=== PATIENT | female | born 1995 ===

== ENCOUNTER 2022-07-18 07:30 | Emergency (ER) | payer SELFPAY ==
[~2022-07-18] VITALS: Ht 151 cm; Wt 48.0 kg
[2022-07-18] MEDS ORDERED: KETOROLAC 30 MG/ML VIAL IVP STA (07:48)
[2022-07-18 08:02] LABS: BILIRUBIN,URINE NEGATIVE (NEGATIVE); CLARITY,URINE CLEAR; COLOR,URINE YELLOW; GLUCOSE, URINE (UA) NEGATIVE (NEGATIVE); KETONES,URINE NEGATIVE (NEGATIVE); LEUKOCYTE ESTERASE ,URINE NEGATIVE (NEGATIVE); NITRITE,URINE NEGATIVE (NEGATIVE); PH,URINE 5.5 (5-9); PROTEIN,URINE NEGATIVE (NEGATIVE)
[2022-07-18 08:10] LABS: BASOPHILS # (AUTO) 0.1 10^3/uL (0.0-0.1); BASOPHILS % (AUTO) 1 % (0-10); EOSINOPHILS # (AUTO) 0.2 10^3/uL (0.0-0.3); EOSINOPHILS % (AUTO) 2 % (0-10); HEMATOCRIT 42 % (35-52); HEMOGLOBIN 13.9 g/dL (11.5-16.0); LYMPHOCYTES # (AUTO) 2.5 10^3/uL (1.0-4.0); LYMPHOCYTES % (AUTO) 26 % (12-44); MEAN CORPUSCULAR HEMOGLOBIN 29 pg (25-34); MEAN CORPUSCULAR HGB CONC 33 g/dL (32-36); MEAN CORPUSCULAR VOLUME 89 fL (80-99); MEAN PLATELET VOLUME 9.2 fL (9.0-12.2); MONOCYTES # (AUTO) 0.7 10^3/uL (0.0-1.0); MONOCYTES % (AUTO) 7 % (0-12); NEUTROPHILS # (AUTO) 6.2 10^3/uL (1.8-7.8); NEUTROPHILS % (AUTO) 64 % (42-75); PLATELET COUNT 392 10^3/uL (130-400); WHITE BLOOD COUNT 9.6 10^3/uL (4.3-11.0)
--- NOTE | 2022-07-18 08:12 | ED GU-Female ---
General Chief Complaint: Abdominal/GI Problems Stated Complaint: ABD AND LOWER BACK PAIN Nursing Triage Note: pt states low back and abd pain for about 3 weeks, chills and difficulty urinating, vaginal discharge since child born in october of last year Source: patient Exam Limitations: no limitations History of Present Illness Date Seen by Provider: Jul 18, 2022 Time Seen by Provider: 07:40 Initial Comments Here with report of low back pain, vaginal discharge and pain with urination over the last 3 weeks. States the discharge is watery. She has not sexually active since delivery last October. Last menstrual period was a few days ago. She has tried acetaminophen for pain but has not had anything today. States the pain is worse this morning. 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 Denies problems with bowel movements. Denies blood in her urine or st ool. She is vaccinated for COVID and influenza. Timing/Duration: getting worse, other (3 weeks) Severity/Quality: mild, moderate, aching Location: suprapubic Radiation: back Activities at Onset: none Sexual [place] History: not active Associated Symptoms: abdominal pain, dysuria; No fever/chills; lower back pain; No nausea/vomiting; urinary frequency Allergies and Home Medications Allergies Coded Allergies: No Known Drug Allergies (Unverified , 07/18/22) Patient Home Medication List Home Medication List Reviewed: Yes Review of Systems Review of Systems Constitutional: No chills, No fever EENTM: no symptoms reported Respiratory: No cough, No short of breath Gastrointestinal: see HPI Genitourinary: see HPI : No LMP: Jul 15, 2022 Musculoskeletal: see HPI Past Rybzfsj-Ysosan-Ezotck Hx Patient Social History Tobacco Use?: No Use of E-Cig and/or Vaping dev: No Substance use?: No Past Medical History Surgeries: No Respiratory: No Cardiac: No Gastrointestinal: No Family Medical History Reviewed and Corrections made No Pertinent Family Hx Physical Exam Vital Signs Vital Signs - First Documented 07/18/22 07:41 Temp 36.2 Pulse 62 Resp 18 B/P (MAP) 99/66 (77) Pulse Ox 100 O2 Delivery Room Air Capillary Refill : Less Than 3 Seconds Height, Weight, BMI Height: '" Weight: lbs. oz. kg; 21.00 BMI Method: General Appearance: WD/WN, no apparent distress Cardiovascular: regular rate, rhythm, no murmur Respiratory: lungs clear, normal breath sounds Gastrointestinal: soft, tenderness (Suprapubic) Back: no vertebral tenderness; No CVA tenderness (R); CVA tenderness (L) Extremities: non-tender, normal inspection Neurologic/Psychiatric: alert, normal mood/affect Skin: normal color, warm/dry Progress/Results/Core Measures Suspected Sepsis SIRS Temperature: Pulse: 62 Respiratory Rate: 18 Laboratory Tests 07/18/22 08:02: White Blood Count 9.6 Blood Pressure 99 /66 Mean: 77 Laboratory Tests 07/18/22 08:02: Creatinine 0.72, Platelet Count 392, Total Bilirubin 0.5 Results/Orders Lab Results Laboratory Tests Test 07/18/22 07:52 07/18/22 08:02 Range/Units Urine Color YELLOW Urine Clarity CLEAR Urine pH 5.5 5-9 Urine Specific [place] >=1.030 1.016-1.022 Urine Protein NEGATIVE NEGATIVE Urine Glucose (UA) NEGATIVE NEGATIVE Urine Ketones NEGATIVE NEGATIVE Urine Nitrite NEGATIVE NEGATIVE Urine Bilirubin NEGATIVE NEGATIVE Urine Urobilinogen 0.2 < = 1.0 MG/DL Urine Leukocyte Esterase NEGATIVE NEGATIVE Urine RBC (Auto) TRACE-I H NEGATIVE Urine RBC 0-2 /HPF Urine WBC NONE /HPF Urine Squamous Epithelial Cells 5-10 /HPF Urine Crystals NONE /LPF Urine Bacteria FEW H /HPF Urine Casts NONE /LPF Urine Mucus SMALL H /LPF Urine Culture Indicated NO White Blood Count 9.6 4.3-11.0 10^3/uL Red Blood Count 4.78 3.80-5.11 10^6/uL Hemoglobin 13.9 11.5-16.0 g/dL Hematocrit 42 35-52 % Mean Corpuscular Volume 89 80-99 fL Mean Corpuscular Hemoglobin 29 25-34 pg Mean Corpuscular Hemoglobin Concent 33 32-36 g/dL Red Cell Distribution Width 12.8 10.0-14.5 % Platelet Count 392 130-400 10^3/uL Mean Platelet Volume 9.2 9.0-12.2 fL Immature Granulocyte % (Auto) 0 % Neutrophils (%) (Auto) 64 42-75 % Lymphocytes (%) (Auto) 26 12-44 % Monocytes (%) (Auto) 7 0-12 % Eosinophils (%) (Auto) 2 0-10 % Basophils (%) (Auto) 1 0-10 % Neutrophils # (Auto) 6.2 1.8-7.8 10^3/uL Lymphocytes # (Auto) 2.5 1.0-4.0 10^3/uL Monocytes # (Auto) 0.7 0.0-1.0 10^3/uL Eosinophils # (Auto) 0.2 0.0-0.3 10^3/uL Basophils # (Auto) 0.1 0.0-0.1 10^3/uL Immature Granulocyte # (Auto) 0.0 0.0-0.1 10^3/uL Sodium Level 139 135-145 MMOL/L Potassium Level 3.8 3.6-5.0 MMOL/L Chloride Level 107 98-107 MMOL/L Carbon Dioxide Level 22 21-32 MMOL/L Anion Gap 10 5-14 MMOL/L Blood Urea Nitrogen 12 7-18 MG/DL Creatinine 0.72 0.60-1.30 MG/DL Estimat Glomerular Filtration Rate 117 BUN/Creatinine Ratio 17 Glucose Level 85 70-105 MG/DL Calcium Level 9.7 8.5-10.1 MG/DL Corrected Calcium 8.5-10.1 MG/DL Total Bilirubin 0.5 0.1-1.0 MG/DL Aspartate Amino Transf (AST/SGOT) 22 5-34 U/L Alanine Aminotransferase (ALT/SGPT) 22 0-55 U/L Alkaline Phosphatase 84 40-136 U/L C-Reactive Protein High Sensitivity 0.36 0.00-0.50 MG/DL Total Protein 8.6 H 6.4-8.2 GM/DL Albumin 4.8 H 3.2-4.5 GM/DL Micro Results Microbiology 07/18/22 Wet Prep - Final, Complete My Orders Orders - BRIDGET TONG MD Ed Iv/Invasive Line Start (07/18/22 07:48) Urine Bedside (07/18/22 07:48) Cbc With Automated Diff (07/18/22 07:48) Comprehensive Metabolic Panel (07/18/22 07:48) Hs C Reactive Protein (07/18/22 07:48) Ua Culture If Indicated (07/18/22 07:48) Ketorolac Injection (Toradol Injection) (07/18/22 07:48) Wet Prep (07/18/22 07:48) Metronidazole Tablet (Flagyl Tablet) (07/18/22 09:00) Vital Signs/I&O 07/18/22 07/18/22 07:41 08:05 Temp 36.2 36.2 Pulse 62 Resp 18 B/P (MAP) 99/66 (77) Pulse Ox 100 O2 Delivery Room Air Capillary Refill : Less Than 3 Seconds Blood Pressure Mean: 77 Progress Note : Progress Note Seen and evaluated. We will get IV and check basic labs including CBC and CMP as well as CRP. UA and UCG ordered. Self-administered wet prep ordered. Monitor patient. Differential includes UTI, bacterial vaginosis, renal dysfunction, electrolyte abnormality 0856: Wet prep positive for clue cells as well as a few white cells. Otherwise CBC is normal, CMP is normal and CRP is negative. UA does not show findings of urinary tract and fraction. UCG is negative. We will initiate Flagyl 500 mg p.o. and continue that outpatient for 7 days. I did review concerns with her regarding her left shoulder. She is having pain. She does do heavy lifting at her work at the [employer]. She has tenderness along the anterior superior portion of the shoulder and with range of motion including internal rotation and abduction. We did discuss rotator cuff concerns. She will rest that and continue with ibuprofen and follow-up if things worsen. Discharged home with return precautions. Patient verbalized understanding instructions and agreement with plan. We discussed OTC medication as well including acetaminophen and ibuprofen. Departure Impression Primary Impression: Bacterial vaginosis Additional Impression: Left shoulder pain Qualified Codes: M25.512 - Pain in left shoulder Disposition: 01 HOME, SELF-CARE Condition: Improved Departure-Patient Inst. Decision time for Depature: 08:59 Referrals: NO,LOCAL PHYSICIAN (PCP/Family) Primary Care Physician Patient Instructions: Bacterial Vaginosis ED, Shoulder Pain ED Add. Discharge Instructions: All discharge instructions reviewed with patient and/or family. Voiced understanding. You may take Tylenol/acetaminophen 1000 mg every 8 hours as needed for pain. You may take ibuprofe 400 mg every 8 hours as needed for pain. Follow-up with your doctor for recheck and further evaluation especially regarding her shoulder. Off work today. Return for worse pain, swelling, weakness, breathing problems, vomiting, fever or other concerns as needed. Scripts Metronidazole (Metronidazole) 500 Mg Tablet 500 MG PO BID, #13 TAB 0 Refills Prov: BRIDGET TONG MD 07/18/22 Work/School Note: Work Release Form Date Seen in the Emergency Department: Jul 18, 2022 Return to Work: Jul 19, 2022 Restrictions: No Restrictions BRIDGET TONG MD Jul 18, 2022 08:12
[2022-07-18 08:24] LABS: ALBUMIN 4.8 GM/DL (3.2-4.5); CHLORIDE 107 MMOL/L (98-107); POTASSIUM 3.8 MMOL/L (3.6-5.0); SODIUM 139 MMOL/L (135-145)
[2022-07-18 08:25] LABS: CALCIUM 9.7 MG/DL (8.5-10.1)
[2022-07-18 08:26] LABS: GLUCOSE 85 MG/DL (70-105); TOTAL PROTEIN 8.6 GM/DL (6.4-8.2)
[2022-07-18 08:27] LABS: CARBON DIOXIDE 22 MMOL/L (21-32)
[2022-07-18 08:28] LABS: BILIRUBIN,TOTAL 0.5 MG/DL (0.1-1.0)
[2022-07-18 08:28] LABS: BACTERIA,URINE FEW /HPF; RBC,URINE 0-2 /HPF
[2022-07-18 08:30] LABS: ALKALINE PHOSPHATASE 84 U/L (40-136); CREATININE SERUM 0.72 MG/DL (0.60-1.30); GFR ESTIMATED 117
[2022-07-18 08:31] LABS: BUN/CREATININE RATIO 17
[2022-07-18 08:33] LABS: ALANINE AMINOTRANSFERASE 22 U/L (0-55)
[2022-07-18] MEDS ORDERED: metroNIDAZOLE 500 MG (FLAGYL) TAB PO ONE (09:00)
[2022-07-18] MEDS ORDERED: METR-145 PO (09:00)
[2022-07-18 09:23] VITALS: BP 93/64
== END 2022-07-18 09:23 | disposition home or self-care (01) ==
LOC: ER 07:35
DX: N76.0 Acute vaginitis (principal); M25.512 Pain in left shoulder; X50.0XXA Overexertion from strenuous movement or load, initial encounter; Y92.59 Other trade areas as the place of occurrence of the external cause; Y99.0 Civilian activity done for income or pay
CPT/HCPCS: 36415; 80053; 81000; 84703; 85025; 86141; 87210; 99284